=== PATIENT | female | born 1980 | race Caucasian/White ===

== ENCOUNTER 2021-07-23 12:52 | Emergency (ER) | payer OTHER, SELFPAY | END 2021-07-23 19:27 | disposition left against medical advice (07) | PROVIDERS: Emergency Provider Emergency Medicine; PCP Internal Medicine | DX: H92.09 Otalgia, unspecified ear (principal) ==

== ENCOUNTER 2022-06-24 08:35 | Emergency (ER) | payer OTHER, SELFPAY ==
[2022-06-24 08:41] VITALS: BP 111/70; PULSE 84; RESP 17; TEMP 35.7; O2SAT 99; BMI 22.6
[2022-06-24 09:12] LABS: Strep A Nucleic Acid Negative (Negative)
[2022-06-24 09:23] LABS: COVID-19 Test Negative (Negative); IDNOW Serial# 16C4AD1C; IDNOW Serial# BCCEAD1C; Influenza A Negative (Negative); Influenza B2 Negative (Negative)
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
[2022-06-24 10:25] VITALS: BP 137/80; PULSE 82; RESP 18; TEMP 36.7; O2SAT 100
--- NOTE | 2022-06-24 10:28 | PC.NURSE ---
patient a./ox4 . breathing even and unlabored . VSS . went over discharge instructions as ordered by providers .patient educated on completion on antibiotics .patient has no questions at this time . patient to follow up with primary care .
== END 2022-06-24 10:31 | disposition home or self-care (01) ==
PROVIDERS: Emergency Provider Emergency Medicine; PCP Internal Medicine
DX: J02.9 Acute pharyngitis, unspecified (principal); R05.9 Cough, unspecified; Z20.822 Contact with and (suspected) exposure to COVID-19
CPT/HCPCS: 36415; 87502; 87635; 87651; 99284

== ENCOUNTER 2022-09-09 10:07 | Emergency (ER) | payer OTHER, SELFPAY ==
[2022-09-09 10:14] VITALS: BP 129/78; PULSE 75; RESP 16; TEMP 36.5; O2SAT 100; BMI 21.7
--- NOTE | 2022-09-09 10:24 | ED.GENADULT ---
HPI - General Adult General Chief complaint: Upper Respiratory Symptoms Stated complaint: Strep throat Time Seen by Provider: 09/09/22 10:23 Source: patient Mode of arrival: ambulatory Limitations: no limitations History of Present Illness HPI narrative: Patient is a 42 year old assigned female at with a history of recurrent strep infections presenting to the emergency department today with a sore throat. Patient states that she gets strep throat often and believes to be having an episode of it now. Patient states that she regularly tests negative for it but still needs treatment. Patient denies any dizziness, lightheadedness, abdominal pain, nausea, vomiting, fever, chills, blurry vision, double vision, loss of vision, chest pain, difficulty breathing, shortness of breath, back pain, night sweats, pain with urination, increased urinary frequency, increased urinary urgency, blood in her urine or stool, syncope or a near syncopal episode, recent trauma or falls, bowel incontinence, bladder incontinence, bowel retention, bladder retention, or any other complaints at this time. Radiation: non-radiation Severity: mild Severity scale (1-10): 1 Relieving factors: none Exacerbating factors: none Associated symptoms: denies other symptoms Treatments prior to arrival: none Related Data Previous Rx's Medication Instructions Recorded amoxicillin 875 mg-potassium 1 tab PO BID 7 days #14 tabs 06/24/22 clavulanate 125 mg tablet penicillin V potassium 500 mg 500 mg PO BID 10 days #20 tabs 09/09/22 tablet Allergies Allergy/AdvReac Type Severity Reaction Status Date / Time No Known Allergies Allergy Unverified 04/14/20 19:36 [No Known Allergies*] Review of Systems Constitutional: Constitutional: Reports no additional constitutional complaints, Denies chills, Denies fever(s) and Denies night sweats Eyes: Eyes: Reports no additional eye complaints, Denies blurry vision, Denies change in vision, Denies diplopia, Denies eye discharge, Denies loss of vision and Denies eye pain ENT: Denies dizziness and Reports sore throat Cardiovascular: Cardiovascular: Reports no additional cardiovascular complaints, Denies chest pain, Denies lightheadedness, Denies Loss of Consciousness and Denies dyspnea Respiratory: Respiratory: Reports no additional respiratory complaints and Denies dyspnea Gastrointestinal: Gastrointestinal: Reports no additional gastrointestinal complaints, Denies abdominal pain, Denies melena, Denies hematochezia, Denies change in bowel habits and Denies change in stool character Genitourinary: Genitourinary: Denies hematuria, Denies urinary frequency, Denies dysuria, Denies urinary incontinence, Denies urinary hesitancy and Denies urinary urgency Musculoskeletal: Musculoskeletal: Reports no additional musculoskeletal complaints, Denies numbness and Denies tingling Neurologic: Denies dizziness, Denies loss of vision, Denies numbness and Denies tingling Psychiatric: Psychiatric: Reports no additional psychiatric complaints Endocrine: Endocrine: Reports no additional endocrine complaints Hematologic/Lymphatic: Hematologic/Lymphatic: Reports no additional hematologic/lymphatic complaints Allergic/Immunologic: Allergic/Immunologic: Reports no additional allergic/immunologic complaints [facility] Past Medical History Attestation statement: The following information was validated with the patient. Source: old records reviewed and nursing notes reviewed Social History Social History Advance Directives: No Advance Directives Information Provided: No Physical Exam ED Vital Signs: Vital Signs - 24 hr 09/09/22 10:14 Temperature 97.7 F Pulse Rate 75 Respiratory Rate 16 Blood Pressure 129/78 Pulse Oximetry 100 Oxygen Delivery Method Room Air BMI result Body Mass Index 21.7 Const General: cooperative, no acute distress, alert and awake Nutritional Appearance: well nourished Orientation/consciousness: patient oriented x3 Limitations: no limitations HENMT Head: Yes normal to inspection and Yes atraumatic Ears: hearing grossly normal bilaterally and external ears normal General nose exam: Normal external nose present, no nasal discharge noted and no epistaxis Face and sinus: Yes normal facial exam, No abrasion and No laceration Mouth: Normal oral and palatal mucosa present, no drooling and no muffled voice Throat: Yes posterior oropharynx abnormal (erythema and exudate present) Eyes General: appearance normal, both eyes and all related structures Periorbital: periorbital findings normal Eyelids: Yes eyelids normal Conjunctivae: conjunctivae normal Pupils: Equal, round and reactive pupils present EOM: EOMs intact bilaterally Neck Neck: Yes normal visual inspection, Yes full ROM and Yes no lymphadenopathy Chest Chest palpation & inspection: normal inspection of the chest Resp Effort & Inspection: normal respiratory effort and able to speak in complete sentences Auscultation: clear to auscultation bilaterally Cardio Rate: regular rate Rhythm: regular rhythm GI Inspection: Yes normal to inspection Palpation (GI): Soft to palpation, not firm, nontender, no guarding and not rigid Neuro General: patient oriented x3 and moves all extremities Cranial nerves: Yes Equal, round and reactive pupils present Cognition (Neuro): normal cognition Motor exam (neuro): 5/5 motor strength present throughout Sensory Exam: Normal double simultaneous stimulation for sensation Coordination: [id number] test normal Extrem General: Yes normal to inspection, Yes full ROM and Yes capillary refill normal Psych Appearance: grossly normal Mental Status: mental status grossly normal Affect: normal affect Attitude: cooperative Thought process: Normal thought process present Thought content: Normal thought content present Insight: Good insight present (Psych) Medical Decision Making Medical Decision Making MDM Narrative: Patient is a 42 year old assigned female at with a history of recurrent presenting to the emergency department today with a sore throat. Patient's physical exam showed pharyngeal erythema and exudates. Patient's strep and COVID/RSV/Influenza swabs were negative. I explained my physical exam findings as well as all test results to the patient. I answered all questions asked by the patient. I stressed the importance of the patient taking her medication as prescribed. I stressed the importance of the patient following up with her primary care provider. I stressed the importance of the patient returning to the emergency department immediately if her symptoms were to worsen or if she were to develop any dizziness, shortness of breath, difficulty breathing, chest pain, blurry vision, loss of vision, nausea, vomiting, abdominal pain, fever, chills, back pain, or any other complaints. Patient verbalized agreement and understanding with this treatment plan and discharge. Differential Diagnosis Differential Diagnoses: The differential diagnosis associated with the presentation includes pharyngitis Lab Data [facility] [place] Lab Attestation statement: I reviewed the patient's lab results. Labs: Lab Results 09/09/22 09/09/22 Range/Units 10:16 10:46 Influenza Type A (PCR) NEGATIVE (Negative) Influenza Type B (PCR) NEGATIVE (Negative) RSV RNA Qual (PCR) NEGATIVE (Negative) SARS-CoV-2 RNA (RT-PCR) NEGATIVE (Negative) S. pyogenes GrpA ELIANA Negative (Negative) Discharge Plan Discharge Clinical Impression: Pharyngitis Patient Disposition: Home, Self-Care Instructions: Pharyngitis (ED) Additional Instructions: Follow up with your primary care provider. Return to the emergency department immediately if your symptoms worsen or if you develop any dizziness, shortness of breath, difficulty breathing, chest pain, blurry vision, loss of vision, nausea, vomiting, abdominal pain, fever, chills, back pain, or any other complaints. Prescriptions: New penicillin V potassium 500 mg tablet 500 mg PO BID 10 Days Qty: 20 0RF No Action amoxicillin-pot clavulanate 875-125 mg tablet 1 tab PO BID 7 Days Qty: 14 0RF Referrals: Patricia Fontenot MD [Primary Care Provider] - Stand Alone Forms: Work/School Release Interventions: ED Discharge Assessment Last Done: 09/09/22 11:30 Discharge Date/Time: 09/09/22 11:32 Print Language: Greek
[2022-09-09 10:36] LABS: IDNOW Serial# 6674DD1D; Strep A Nucleic Acid Negative (Negative)
[2022-09-09 11:50] LABS: Influenza A PCR NEGATIVE (Negative); Influenza B PCR NEGATIVE (Negative); Resp Syncy Virus RNA Qual PCR NEGATIVE (Negative); SARS COV2 PCR INHOUSE NEGATIVE (Negative)
== END 2022-09-09 11:32 | disposition home or self-care (01) ==
PROVIDERS: Physician Assistant Medical; Emergency Provider Emergency Medicine Emergency Medical Services; PCP Internal Medicine
DX: J02.0 Streptococcal pharyngitis (principal); Z20.822 Contact with and (suspected) exposure to COVID-19; Z20.828 Contact with and (suspected) exposure to other viral communicable diseases; Z79.899 Other long term (current) drug therapy
CPT/HCPCS: 0241U; 36415; 87651; 99283

== ENCOUNTER 2022-11-07 14:02 | Emergency (ER) | payer OTHER, SELFPAY ==
[2022-11-07 15:06] VITALS: BP 130/88; PULSE 68; RESP 18; TEMP 36.7; O2SAT 97; BMI 21.7
--- NOTE | 2022-11-07 15:06 | ED_ITS ---
HPI - URI/Sore Throat General Chief Complaint: Upper Respiratory Symptoms Stated Complaint: ? Strep Throat Time Seen by Provider: 11/07/22 15:32 Source: patient Mode of arrival: ambulatory Limitations: no limitations History of Present Illness HPI Narrative: 42-year-old female here with sore throat left greater than right, nasal congestion and cough since Saturday. Patient tested positive for COVID on Saturday. She is here because she is concerned that she may have strep throat. She did have fevers but tells me these are resolved. Related Data Previous Rx's Medication Instructions Recorded amoxicillin 875 mg-potassium 1 tab PO BID 7 days #14 tabs 06/24/22 clavulanate 125 mg tablet penicillin V potassium 500 mg 500 mg PO BID 10 days #20 tabs 09/09/22 tablet Allergies Allergy/AdvReac Type Severity Reaction Status Date / Time No Known Allergies Allergy Unverified 04/14/20 19:36 [No Known Allergies*] Review of Systems Review of Systems: Yes all other systems are reviewed and are negative Constitutional: Constitutional: Reports no additional constitutional complaints, Denies body ache(s), Denies chills, Denies fever(s), Denies headache(s) and Denies weakness Eyes: Eyes: Reports no additional eye complaints and Denies change in vision ENT: Reports system reviewed and no additional complaints, except as documented, Denies dizziness, Denies headache(s), Reports nasal congestion, Denies nasal discharge, Denies neck pain and Reports sore throat Cardiovascular: Cardiovascular: Reports no additional cardiovascular complaints, Denies chest pain, Denies leg edema and Denies dyspnea Respiratory: Respiratory: Reports no additional respiratory complaints, Reports cough and Denies dyspnea Gastrointestinal: Gastrointestinal: Reports no additional gastrointestinal complaints, Denies abdominal pain, Denies diarrhea, Denies nausea and Denies vomiting Genitourinary: Genitourinary: Reports no additional female genitourinary complaints and Denies urinary incontinence Musculoskeletal: Musculoskeletal: Reports no additional musculoskeletal complaints, Denies back pain, Denies arthralgias, Denies joint swelling, Denies neck pain, Denies numbness and Denies tingling Integumentary/Breasts: Skin/Breast: Reports system reviewed and no additional complaints, except as docu and Denies rash Neurologic: Reports system reviewed and no additional complaints, except as documented, Denies Abnormal speech present, Denies dizziness, Denies headache(s), Denies numbness, Denies tingling and Denies weakness [facility] Past Medical History Attestation statement: The following information was validated with the patient. Source: old records reviewed and nursing notes reviewed Physical Exam Vital Signs: Vital Signs: Last Vital Signs Temp 98.0 F 11/07/22 15:06 Pulse 68 11/07/22 15:06 Resp 18 11/07/22 15:06 BP 130/88 11/07/22 15:06 Pulse Ox 97 11/07/22 15:06 O2 Del Method Room Air 11/07/22 15:06 BMI result Body Mass Index 21.7 Const: General: cooperative, healthy appearing, comfortable and no acute distress Orientation/consciousness: patient oriented x3 Limitations: no limitations HEENT: Head: Yes normal to inspection Ears: hearing grossly normal b ilaterally and TM's normal bilaterally General nose exam: Normal external nose present Face and sinus: Yes normal facial exam Mouth: Normal oral and palatal mucosa present Throat: Yes posterior oropharynx normal, Yes tonsils normal, Yes uvula midline and Yes other (There is no erythema, swelling or exudate) Eyes: General: appearance normal, both eyes and all related structures Pupils: Equal, round and reactive pupils present Neck: Neck: Yes normal visual inspection, Yes full ROM, Yes no lymphadenopathy and Yes no meningeal signs Chest: Chest palpation & inspection: normal inspection of the chest Resp: Effort & Inspection: normal respiratory effort Auscultation: clear to auscultation bilaterally Cardio: Rate: regular rate Rhythm: regular rhythm Peripheral pulses: Peripheral pulses 2+ throughout GI: Inspection: Yes normal to inspection Palpation (GI): Soft to palpation and nontender Auscultation: normal bowel sounds Back/Spine/Pelvis: Thoracic/Lumbar Spine: thoracic and lumbar spine normal to inspection Skin: General skin exam: no rashes or lesions noted Neuro: General: patient oriented x3, no meningeal signs, no focal motor deficits and normal sensation to monofilament Cranial nerves: Yes Equal, rou nd and reactive pupils present Cognition (Neuro): normal cognition Speech: No Abnormal speech present Gait exam (Neuro): Normal gait present Motor exam (neuro): 5/5 motor strength present throughout Extrem: General: Yes normal to inspection Course Course Course Narrative: This is rapid medical exam. Deferred additional HPI, ROS, PE to primary pr ovider. 42 yo female with no known medical problems here with sore throat, congestion, cough, COVID positive Saturday but reports continued sore throat. Concerned for strep. WIll obtain COVID, strep screen. VSS Medical Decision Making Medical Decision Making [facility] Narrative: 42-year-old female known COVID positive here with continued sore throat left greater than right with concern for strep pharyngitis as she has history of same. On exam posterior oropharynx is normal. There is no tonsillar swelling, erythema, exudate. The uvula is midline. There is no lymphadenopathy. Will send testing for COVID and strep Differential Diagnosis Differential Diagnoses: The differential diagnosis associated with the presentation includes Viral syndrome, strep pharyngitis Lab Data [facility] Lab Attestation statement: I reviewed the patient's lab results. Labs: Lab Results 11/07/22 11/07/22 Range/Units 15:12 15:12 COVID-19 (JOYA) Positive A (Negative) COVID-19 Clin Com See Note S. pyogenes GrpA ELIANA Negative (Negative) Prescription Management I considered prescription management with: Antibiotic Sore throat is likely secondary to viral illness. I do not feel the patient needs antibiotic center score is 0 Discharge Plan Discharge Clinical Impression: COVID-19 Patient Disposition: Home, Self-Care Instructions: COVID-19 (Coronavirus Disease 2019) (ED) Additional Instructions: Your test for COVID is positive. You may test positive for COVID for several weeks. Yourr test for strep is negative. Your throat does not look like you have strep throat. Please alternate Motrin Tylenol for pain or fever. Saltwater gargles. Increase fluids at home Prescriptions: No Action penicillin V potassium 500 mg tablet 500 mg PO BID 10 Days Qty: 20 0RF amoxicillin-pot clavulanate 875-125 mg tablet 1 tab PO BID 7 Days Qty: 14 0RF Referrals: Patricia Fontenot MD [Primary Care Provider] - 1 week
[2022-11-07 15:26] LABS: IDNOW Serial# BCCEAD1C
[2022-11-07 15:28] LABS: IDNOW Serial# 08D9AD1C; Strep A Nucleic Acid Negative (Negative)
[2022-11-07 15:29] LABS: COVID-19 Test Positive (Negative)
== END 2022-11-07 15:38 | disposition home or self-care (01) ==
LOC: HO.ED 15:37
PROVIDERS: Nurse Practitioner Family; Emergency Provider Emergency Medicine; PCP Internal Medicine
DX: U07.1 COVID-19 (principal); J02.9 Acute pharyngitis, unspecified; R05.9 Cough, unspecified; R09.81 Nasal congestion
CPT/HCPCS: 87635; 87651; 99282; 99283

== ENCOUNTER 2023-06-04 11:35 | Emergency (ER) | payer OTHER, SELFPAY ==
--- NOTE | ~2023-06-04 | CT_ITS ---
EXAMINATION: CT HEAD WITHOUT CONTRAST CLINICAL INFORMATION: Headache, pain COMPARISON: None available. TECHNIQUE: Contiguous axial imaging was performed from the skull base to vertex without intravenous administration of contrast. This CT examination was performed using dose optimization techniques as appropriate, variously including the following: *Automated exposure control *Adjustment of mA and/or kV according to patient size (this includes techniques or standardized protocols for targeted exams where dose is matched to indication/reason for exam; i.e. extremities or head) *Use of iterative reconstruction technique DLP: 593 mGy-cm FINDINGS: No acute intracranial hemorrhage or infarct. The lima-white matter differentiation is preserved. No midline shift or hydrocephalus. No acute extra-axial fluid collections. Sequelae of plate fixation of the left lamina papyracea and left maxilla. Otherwise, osseous structures are unremarkable. Partially empty sella. No orbital pathology. The paranasal sinuses and mastoid air cells are clear. CT/CT head/brain wo IV con IMPRESSION: No acute intracranial pathology.
[2023-06-04 12:08] VITALS: BP 117/79; PULSE 74; RESP 18; TEMP 36.2; O2SAT 98; BMI 23.8
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
[2023-06-04 14:05] LABS: MANUAL DIFF FLAG NO
[2023-06-04 14:08] LABS: Basophils Percent Auto 0.3 % (0-2); Eosinophils Absolute Auto 0.2 X10*3/uL (0.0-0.4); Eosinophils Percent Auto 2.2 % (0-4); Hematocrit 39.8 % (37.0-47.0); Imm Gran Abs Auto 0.02 X10*3/uL (0.00-0.03); Imm Gran Pct Auto 0.3 % (0.0-0.4); Lymphocytes Absolute Auto 2.5 X10*3/uL (1.2-4.9); Lymphocytes Percent Auto 35.9 % (20-40); Mean Corpuscular HGB Conc 32.7 g/dl (31.0-35.0); Mean Corpuscular Volume 88.6 fL (80.0-98.0); Mean Platelet Volume 10.2 fL (9.4-12.3); Monocytes Absolute Auto 0.4 X10*3/uL (0.1-1.2); Monocytes Percent Auto 5.7 % (2-11); Neutrophils Absolute Auto 3.9 x10*3/uL (2.0-8.3); Neutrophils Percent Auto 55.6 % (45-73); Platelet Count 250 X10*3/uL (160-400); Red Blood Count 4.49 X10*6/uL (4.20-5.50)
[2023-06-04 14:34] LABS: Alanine Aminotransferase 21 U/L (0-31); Albumin Level 4.2 g/dL (3.5-5.0); Alkaline Phosphatase 58 U/L (39-117); Anion Gap 11 (12-20); Aspartate Amino Transferase 22 U/L (5-31); Bilirubin Total 0.4 mg/dL (0.0-1.0); Blood Urea Nitrogen 10 mg/dL (9-16); Calcium 9.4 mg/dL (8.4-10.2); Carbon Dioxide 30 mmol/L (22-29); Chloride 106 mmol/L (96-108); Creatinine Clr Calc Pharmacy 94.6; Estimated Glomerular Filt Rate > 60; Glucose Random 111 mg/dL (60-115); HCG Quantitative < 2 mIU/mL; Potassium 4.2 mmol/L (3.3-5.1); Sodium 143 mmol/L (135-145); Total Protein 7.6 g/dL (6.5-8.0)
[2023-06-04 14:44] LABS: Influenza A PCR NEGATIVE (Negative); Influenza B PCR NEGATIVE (Negative); Resp Syncy Virus RNA Qual PCR NEGATIVE (Negative); SARS COV2 PCR INHOUSE NEGATIVE (Negative)
[2023-06-04 19:34] VITALS: BP 117/78; PULSE 68; RESP 17; TEMP 36.7; O2SAT 97
[2023-06-04] MEDS: 0.9 % Sodium Chloride 1,000 ML 999 ML IV (21:03)
[2023-06-04] MEDS: diphenhydrAMINE HCL 50 MG/ML VIAL 25 MG IVPUSH (21:03)
[2023-06-04] MEDS: Metoclopramide HCl 10 MG/2 ML VIAL IVPUSH (21:03)
[2023-06-04] MEDS: Ketorolac Tromethamine 30 MG/ML VIAL IVPUSH (21:03)
[2023-06-04 21:28] LABS: Erythrocyte Sedimentation Rate 11 MM/HR (0-20)
--- NOTE | 2023-06-04 21:29 | PC.NURSE ---
Pt is resting in bed at this time, complaining of 10/10 headache starting 3 weeks ago. Pt endorses nausea. I placed a 20g IV in the left AC and medicated per MAR. Pt is A&Ox4, GCS 15, with warm, dry skin. Pending CT results
[2023-06-04 21:56] VITALS: BP 111/73; PULSE 68; RESP 13; TEMP 36.8; O2SAT 99
--- NOTE | 2023-06-04 22:08 | PC.NURSE ---
Pt reporting headache has decreased from 05/07 to 02/04
== END 2023-06-04 22:44 | disposition home or self-care (01) ==
PROVIDERS: Physician Assistant; Physician Assistant Medical; Emergency Provider Internal Medicine; PCP Internal Medicine
DX: R51.9 Headache, unspecified (principal); Z20.822 Contact with and (suspected) exposure to COVID-19; Z20.828 Contact with and (suspected) exposure to other viral communicable diseases
CPT/HCPCS: 0241U; 70450; 80053; 83735; 84702; 85025; 85652; 96361; 96374; 96375; 99284; 99285; J1200; J1885; J2765

== ENCOUNTER 2023-08-07 11:28 | Emergency (ER) | payer OTHER, SELFPAY ==
[2023-08-07 11:54] VITALS: BP 122/69; PULSE 84; RESP 18; TEMP 37.1; O2SAT 97; BMI 23.5
--- NOTE | 2023-08-07 11:56 | ED.BACK ---
HPI - Back Pain/Injury General Chief Complaint: Back Pain/Injury Stated Complaint: Lower back pain Related Data Previous Rx's Medication Instructions Recorded amoxicillin 875 mg-potassium 1 tab PO BID 7 days #14 tabs 06/24/22 clavulanate 125 mg tablet penicillin V potassium 500 mg 500 mg PO BID 10 days #20 tabs 09/09/22 tablet nxebutsgqa-fprlmahssznis-cspmytyc 1 cap PO Q4-6H PRN headache #16 06/04/23 50 mg-300 mg-40 mg capsule caps (Fioricet) Allergies Allergy/AdvReac Type Severity Reaction Status Date / Time No Known Allergies Allergy Verified 06/04/23 12:11 [No Known Allergies*] PMFSH Social History Social History Advance Directives: No Advance Directives Information Provided: No Physical Exam Vital Signs: Vital Signs: Last Vital Signs Temp 98.7 F 08/07/23 11:54 Pulse 84 08/07/23 11:54 Resp 18 08/07/23 11:54 BP 122/69 08/07/23 11:54 Pulse Ox 97 08/07/23 11:54 O2 Del Method Room Air 08/07/23 11:54 BMI result Body Mass Index 23.5 Course Course Course Narrative: RME: 43 yo F w/ PMHx anxiety presenting to the ED c/o low back pain since yesterday when waking. Admits to shoveling, but denies known injury/fall. reports unchanged/chronic incontinence, fever XRs ordered Full HPI, ROS and PE to be performed by primary ED provider. Discharge Plan Discharge Clinical Impression: Low back pain Patient Disposition: Elopement Prescriptions: No Action penicillin V potassium 500 mg tablet 500 mg PO BID 10 Days Qty: 20 0RF amoxicillin-pot clavulanate 875-125 mg tablet 1 tab PO BID 7 Days Qty: 14 0RF qpgxztgzoe-tuwlwuvzqqddk-qjgr [Fioricet] 50-300-40 mg capsule 1 cap PO Q4-6H PRN (Reason: headache) Qty: 16 0RF Discharge Date/Time: 08/07/23 16:17
== END 2023-08-07 16:17 | disposition left against medical advice (07) ==
PROVIDERS: Emergency Provider Emergency Medicine; PCP Internal Medicine
DX: M54.50 Low back pain, unspecified (principal)
CPT/HCPCS: 99281